=== PATIENT | female | born 1950 | race Caucasian/White ===

== ENCOUNTER → 2020-07-23 14:35 | Outpatient (BNVA) | payer MEDICARE, SELFPAY | PROVIDERS: Family Provider Family Medicine; PCP Family Medicine; Visit Provider Internal Medicine Cardiovascular Disease | DX: I50.9 Heart failure, unspecified (principal); Z86.39 Personal history of other endocrine, nutritional and metabolic disease; Z86.69 Personal history of other diseases of the nervous system and sense organs; Z86.79 Personal history of other diseases of the circulatory system; Z87.2 Personal history of diseases of the skin and subcutaneous tissue; Z87.448 Personal history of other diseases of urinary system; Z98.890 Other specified postprocedural states; E66.9 Obesity, unspecified; E11.9 Type 2 diabetes mellitus without complications; N18.30 Chronic kidney disease, stage 3 unspecified; I10 Essential (primary) hypertension | CPT/HCPCS: 80053; 80061; 83036; 85025 ==

== ENCOUNTER → 2021-01-21 14:23 | Outpatient (BNVA) | payer MEDICARE, SELFPAY | PROVIDERS: Family Provider Family Medicine; PCP Family Medicine; Visit Provider Internal Medicine Cardiovascular Disease | DX: I50.9 Heart failure, unspecified (principal); Z86.39 Personal history of other endocrine, nutritional and metabolic disease; Z86.69 Personal history of other diseases of the nervous system and sense organs; E11.9 Type 2 diabetes mellitus without complications; Z98.890 Other specified postprocedural states; Z86.79 Personal history of other diseases of the circulatory system; Z87.2 Personal history of diseases of the skin and subcutaneous tissue; Z87.448 Personal history of other diseases of urinary system; N18.30 Chronic kidney disease, stage 3 unspecified; E66.9 Obesity, unspecified | CPT/HCPCS: 80053; 80061; 83036; 85025 ==

== ENCOUNTER → 2022-01-27 13:17 | Outpatient (BNVA) | payer MEDICARE, SELFPAY | PROVIDERS: Family Provider Family Medicine; PCP Family Medicine; Visit Provider Internal Medicine Cardiovascular Disease | DX: I13.0 Hypertensive heart and chronic kidney disease with heart failure and stage 1 through stage 4 chronic kidney disease, or unspecified chronic kidney disease (principal); E11.22 Type 2 diabetes mellitus with diabetic chronic kidney disease; N18.30 Chronic kidney disease, stage 3 unspecified; I50.9 Heart failure, unspecified; E66.9 Obesity, unspecified; Z68.27 Body mass index [BMI] 27.0-27.9, adult | CPT/HCPCS: 80053; 80061; 83036; 84443; 85025; 99214 ==

== ENCOUNTER → 2022-07-28 13:49 | Outpatient (BNVA) | payer MEDICARE, SELFPAY | PROVIDERS: Family Provider Family Medicine; PCP Family Medicine; Visit Provider Internal Medicine Cardiovascular Disease | DX: I13.0 Hypertensive heart and chronic kidney disease with heart failure and stage 1 through stage 4 chronic kidney disease, or unspecified chronic kidney disease (principal); E11.22 Type 2 diabetes mellitus with diabetic chronic kidney disease; N18.30 Chronic kidney disease, stage 3 unspecified; I50.22 Chronic systolic (congestive) heart failure; Z79.84 Long term (current) use of oral hypoglycemic drugs; E66.9 Obesity, unspecified; Z68.28 Body mass index [BMI] 28.0-28.9, adult | CPT/HCPCS: 99214 ==

== ENCOUNTER → 2023-04-27 14:26 | Outpatient (BNVA) | payer MEDICARE, SELFPAY | PROVIDERS: Family Provider Family Medicine; PCP Family Medicine; Visit Provider Internal Medicine Cardiovascular Disease | DX: I13.0 Hypertensive heart and chronic kidney disease with heart failure and stage 1 through stage 4 chronic kidney disease, or unspecified chronic kidney disease (principal); I50.20 Unspecified systolic (congestive) heart failure; E11.22 Type 2 diabetes mellitus with diabetic chronic kidney disease; N18.30 Chronic kidney disease, stage 3 unspecified; E66.9 Obesity, unspecified; Z68.27 Body mass index [BMI] 27.0-27.9, adult; Z86.79 Personal history of other diseases of the circulatory system | CPT/HCPCS: 36415; 80053; 80061; 83036; 85025; 99214 ==

== ENCOUNTER 2023-09-02 10:50 | Emergency (ER) | payer MEDICARE, SELFPAY ==
[2023-09-02] VITALS (48 sets, daily range): BP systolic 95–148; BP diastolic 43–87; PULSE 51–81; RESP 12–25; TEMP 36.5; O2SAT 92–98; BMI 29.6
--- NOTE | 2023-09-02 11:00 | XR_ITS ---
WS: [id number] Portable AP upright chest, 09/02/2023 Clinical Data: dyspnea/cough Comparison: Portable chest, 11/16/2018 Findings: No nodules, masses or effusions are seen. The heart is enlarged. The pulmonary vascularity is not increased. No pneumonia or pneumothorax is seen. The aortic arch and descending thoracic aorta show calcification and tortuosity. There are monitor leads on the chest wall. Impression: Cardiomegaly and atherosclerosis.
[2023-09-02 11:08] LABS: Basophils % 0.7 %; Eosinophils % 0.3 %; Hematocrit 42.2 % (36-47); Lymphocytes # 0.7 10^3/uL (0.8-4.8); Lymphocytes % 12.7 %; Mean Corpuscular HGB Conc 33.6 g/dL (30-55); Mean Corpuscular Hemoglobin 29.8 pg (27-33); Mean Corpuscular Volume 88.5 fl (85-98); Mean Platelet Volume 9.4 fL (7.4-10.4); Monocytes # 0.7 10^3/uL (0.2-0.9); Monocytes % 12.5 %; Neutrophils # 4.29 10^3/uL (1.8-7.7); Neutrophils % 73.6 %; Nucleated Red Blood Cells % 0 %; Platelet Count 275 10^3/cmm (157-399); Red Blood Count 4.77 10^6/uL (3.85-5.65); Red Cell Distribution Width 14.2 % (12.1-15.1); White Blood Count 5.83 10^3/uL (3.29-11.43)
--- NOTE | 2023-09-02 11:08 | ECG_ITS ---
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 Measurements Intervals [place] Rate: 51 P: 0 [place]: 0 QRS: -39 QRSD: 85 T: 29 QT: 438 QTc: 404 Interpretive Statements ATRIAL FIBRILLATION WITH SLOW VENTRICULAR RESPONSE LEFT AXIS DEVIATION [QRS AXIS < -30] PATTERN CONSISTENT WITH PULMONARY DISEASE NONSPECIFIC T-WAVE ABNORMALITY Compared to ECG 11/17/2018 05:47:45 Sinus rhythm no longer present First degree AV block no longer present Possible ischemia no longer present T-wave abnormality still present Electronically Signed On 09-02-2023 12:16:39 GUEST RELATION OFFICER by Deborah Tay M.D. [id number]
--- NOTE | 2023-09-02 11:08 | W.ED.WEAKNES ---
HPI - Weakness General: Chief complaint: Weakness Stated complaint: Weakness Time Seen by Provider: 09/02/23 10:55 Source: patient Mode of arrival: EMS History of Present Illness: 72-year-old female presents emergency room via EMS after becoming weak and confused with [facility]. She was walking and began to get lightheaded and dizzy she denies any previous episodes of near syncope. She denies any fever sweats chills chest pain or abdominal pain she is bradycardic on arrival here. When in the room rhythm monitor showing heart rates down in MD Complaint: generalized weakness Onset (ago): minute(s) Duration: intermittent Location: generalized Associated symptoms: Denies chest pain, chills, confusion, melena, decreased appetite, diaphoresis, dysuria, easy bruising, fever(s), headache(s), myalgias, nausea, rash, short of breath, syncope or vomiting Review of Systems Const: Denies: fever(s), chills or diaphoresis Card: Denies: chest pain or syncope Resp: Denies: dyspnea GI: Denies: abdominal pain, nausea, vomiting or melena : Denies: dysuria, urinary frequency or urinary urgency Musc: Denies: neck pain or back pain Skin/Breast: Denies: rash Neuro: Denies: headache(s) or confusion Fuentes/Lymph: Denies: easy bruising [facility] ED PFSH: Medical History Diabetes History of cellulitis Hx of chronic kidney disease Hx of congestive heart failure Hx of encephalopathy Hx of obesity Hx of type 2 diabetes mellitus Hypertension Obesity Surgical History Hx of abdominal surgery Family History Sister Cancer Denies family history of Diabetes CAD (coronary artery disease) Stroke Social History (System 05/05/23 @ 14:24 by Janeth Hooker) Smoking and tobacco/nicotine status: never used tobacco/nicotine Alcohol intake: never Substance/Drug Use: never Physical Exam Const: COMMON NORMALS: no acute distress GENERAL APPEARANCE: cooperative and comfortable ORIENTATION/CONSCIOUSNESS: Yes awake, Yes oriented to person, Yes oriented to place and Yes oriented to time HENMT: COMMON NORMALS: normocephalic, atraumatic and hearing grossly normal bilaterally HEAD & SCALP: normocephalic and atraumatic Resp: COMMON NORMALS: normal respiratory effort, No retractions, No use of accessory muscles and clear to auscultation bilaterally AUSCULTATION: clear to auscultation bilaterally Cardio: COMMON NORMALS: regular rhythm and No murmurs present (Cardio) RATE: bradycardic RHYTHM: regular rhythm GI: COMMON NORMALS: Soft to palpation and No hepatosplenomegaly present AUSCULTATION: Yes normoactive bowel sounds PALPATION: Yes Soft to palpation, No Tenderness to palpation present (GI), No Guarding due to palpation present (GI) and Yes No hepatosplenomegaly present Extremity: COMMON NORMALS: normal to inspection, capillary refill normal, no clubbing, cyanosis or edema, no calf tenderness and no pedal edema Neuro: SENSORIUM/ORIENTATION: Yes oriented to person, Yes oriented to place and Yes oriented to time Skin: COMMON NORMALS: no rashes or lesions noted GENERAL SKIN EXAM: no rashes or lesions noted Course Vital Signs: Vital signs: Vital Signs Temperature 97.7 F 09/02/23 10:51 Pulse Rate 69 09/02/23 15:35 Respiratory Rate 14 09/02/23 15:35 Blood Pressure 148/87 09/02/23 15:35 Pulse Oximetry 95 09/02/23 15:10 Oxygen Delivery Me thod Room Air 09/02/23 12:50 MDM - Weakness Medical Decision Making Patient is feeling much better was able ambulate without difficulty. She did have several episodes of bradycardia while here but never developed any hypotension. Will discharge her home or any change from carvedilol to Toprol-XL 12.5 daily. Also put her on oral antibiotic for the cystitis follow-up with her primary care doctor within the next week return if is further problems. Medical Records I reviewed the patient's medical records. Lab Data I reviewed the patient's lab results. 09/02/23 10:59 09/02/23 11:39 Laboratory Results WBC 5.83 10^3/uL (3.29-11.43) 09/02/23 10:59 RBC 4.77 10^6/uL (3.85-5.65) 09/02/23 10:59 Hgb 14.20 g/dL (11.27-16.99) 09/02/23 10:59 Hct 42.2 % (36-47) 09/02/23 10:59 MCV 88.5 fl (85-98) 09/02/23 10:59 MCH 29.8 pg (27-33) 09/02/23 10:59 MCHC 33.6 g/dL (30-55) 09/02/23 10:59 RDW 14.2 % (12.1-15.1) 09/02/23 10:59 Plt Count 275 10^3/cmm (157-399) 09/02/23 10:59 MPV 9.4 fL (7.4-10.4) 09/02/23 10:59 Neut % (Auto) 73.6 % 09/02/23 10:59 Lymph % (Auto) 12.7 % 09/02/23 10:59 [place] % (Auto) 12.5 % 09/02/23 10:59 Eos % (Auto) 0.3 % 09/02/23 10:59 Baso % (Auto) 0.7 % 09/02/23 10:59 Neut # (Auto) 4.29 10^3/uL (1.8-7.7) 09/02/23 10:59 Lymph # (Auto) 0.7 10^3/uL (0.8-4.8) L 09/02/23 10:59 [place] # (Auto) 0.7 10^3/uL (0.2-0.9) 09/02/23 10:59 Eos # (Auto) 0.0 10^3/uL (0.0-0.8) 09/02/23 10:59 Baso # (Auto) 0.0 10^3/uL (0.0-0.1) 09/02/23 10:59 Nucleated RBC % (auto) 0 % 09/02/23 10:59 Nucleated RBCs # 0.0 /100WBC 09/02/23 10:59 Sodium 138 mmol/L (136-145) 09/02/23 11:39 Potassium 4.0 mmol/L (3.5-5.1) 09/02/23 11:39 Chloride 101 mmol/L (98-107) 09/02/23 11:39 Carbon Dioxide 21 mmol/L (22-29) L 09/02/23 11:39 Anion Gap 20.0 (5-19) H 09/02/23 11:39 BUN 24 mg/dL (8-23) H 09/02/23 11:39 Creatinine 1.9 mg/dL (0.5-0.9) H 09/02/23 11:39 GFR Calculation Not Reportable 09/02/23 11:39 Glucose 147 mg/dL (65-115) H 09/02/23 11:39 Calculated Osmolality 293 mOsm/kg (285-295) 09/02/23 11:39 Calcium 9.0 mg/dL (8.5-10.5) 09/02/23 11:39 Total Bilirubin 0.6 mg/dL (0.15-1.2) 09/02/23 11:39 AST 13 U/L (0-32) 09/02/23 11:39 ALT 7 U/L (0-33) 09/02/23 11:39 Alkaline Phosphatase 118 U/L (35-105) H 09/02/23 11:39 Troponin T Baseline 17 ng/L (0-10) H 09/02/23 11:39 Troponin T 120 Minute 15.68 ng/L (0-10) H 09/02/23 13:45 Delta Troponin T -1.32 ABS# (0-10) L 09/02/23 13:45 Total Protein 7.5 g/dL (6.6-8.7) 09/02/23 11:39 Albumin 4.2 g/dL (3.5-5.2) 09/02/23 11:39 Globulin 3.3 g/dL (1.3-4.6) 09/02/23 11:39 Urine Color Yellow (Yellow) 09/02/23 13:36 Urine Appearance Cloudy (CLEAR) A 09/02/23 13:36 Urine pH 5 (5-7) 09/02/23 13:36 Ur Specific [place] 1.020 (1.005-1.030) 09/02/23 13:36 Urine Protein Neg (Negative) 09/02/23 13:36 Urine Glucose (UA) Norm (Normal) 09/02/23 13:36 Urine Ketones Negative (Negative) 09/02/23 13:36 Urine Blood 2+ (Negative) H 09/02/23 13:36 Urine Nitrate Negative (Negative) 09/02/23 13:36 Urine Bilirubin Neg (Negative) 09/02/23 13:36 Urine Urobilinogen Norm mg/dL (Negative) 09/02/23 13:36 Ur Leukocyte Esterase Negative (Negative) 09/02/23 13:36 Urine RBC 5-10 /hpf (0-2) H 09/02/23 13:36 Urine WBC 40-55 /hpf (0-5) H 09/02/23 13:36 Ur Squamous Epith Cells 5-10 /hpf (0-5) H 09/02/23 13:36 Amorphous Sediment Not Reportable 09/02/23 13:36 Urine Bacteria 2+ /hpf (NONE) H 09/02/23 13:36 Urine Mucus 1+ /hpf 09/02/23 13:36 All radiology interpretation(s) finalized by discharge Discharge Plan Discharge Patient Disposition: Home Clinical Impression: Bradycardia, Cystitis Condition: Stable Prescriptions: New Macrobid 100 mg capsule 100 mg PO BID 7 Days Qty: 14 0RF Rx Instructions: must administer with a meal/food Toprol XL 25 mg tablet extended release 24 hr 12.5 mg PO DAILY Qty: 15 0RF Discontinued carvedilol 6.25 mg tablet 6.25 mg PO BID Qty: 180 3RF No Action simvastatin 20 mg tablet 20 mg PO DAILY potassium chloride 20 mEq tablet,ER particles/crystals 20 meq PO DAILY furosemide 80 mg tablet 80 mg PO DAILY amlodipine 5 mg tablet 7.5 mg PO DAILY Qty: 135 3RF aspirin 81 mg tablet,delayed release (DR/EC) 81 mg PO DAILY Qty: 90 3RF acetaminophen 325 mg Capsule 650 mg PO QID PRN (Reason: Pain) metformin 500 mg tablet extended release 24 hr 500 mg PO DAILY Discharge Orders: Discharge ED (Routine); Ordered 09/02/23 Ordered By: Shen Walker Referrals: sIa Helton DO [Primary Care Provider] - Discharge Diet: Usual diet Discharge Activity: Increase activity as tolerated Patient Instructions: Opioid Safety, Pain Management Activity Restrictions/Additional Instructions: Thank you for choosing [facility] for your healthcare needs today. Please realize this is an emergency room and that we are providing you with a medical screening exam and this may not be complete and all inclusive of all the testing and or work up that you may need to determine your ailment or severity of your illness. It is very important that you follow up as instructed or that you return to the Emergency Department should you have concerns or if your condition changes or worsens in any way. You are seen today for weakness. Your heart rate was rather low in the emergency room recommend holding the carvedilol and instead take Toprol-XL 12.5 mg daily. Additionally you had a mild bladder infection recommend to start oral antibiotics 1 pill twice daily. Follow-up with your primary care doctor. Coding Level of Care Code ED Offender Job Retention Specialist for Michaela Leon
[2023-09-02 12:11] LABS: Alanine Aminotransferase 7 U/L (0-33); Albumin Level 4.2 g/dL (3.5-5.2); Alkaline Phosphatase 118 U/L (35-105); Chloride 101 mmol/L (98-107)
[2023-09-02 12:12] LABS: Troponin(5th) Baseline 17 ng/L (0-10)
[2023-09-02 12:22] LABS: Aspartate Amino Transferase 13 U/L (0-32); Blood Urea Nitrogen 24 mg/dL (8-23); Carbon Dioxide 21 mmol/L (22-29); Globulin 3.3 g/dL (1.3-4.6); Glucose 147 mg/dL (65-115); Osmolality Calculated 293 mOsm/kg (285-295); Total Bilirubin 0.6 mg/dL (0.15-1.2); Total Protein 7.5 g/dL (6.6-8.7)
[2023-09-02 12:33] LABS: Sodium 138 mmol/L (136-145)
--- NOTE | 2023-09-02 13:00 | ECG_ITS ---
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 Measurements Intervals [place] Rate: 58 P: 0 [place]: 0 QRS: -49 QRSD: 100 T: 64 QT: 439 QTc: 434 Interpretive Statements ATRIAL FIBRILLATION WITH SLOW VENTRICULAR RESPONSE PATTERN CONSISTENT WITH PULMONARY DISEASE LEFT ANTERIOR FASCICULAR BLOCK [QRS AXIS <= -45, QR IN I, RS IN II] Compared to ECG 09/02/2023 11:08:32 Left anterior fascicular block now present Left-axis deviation no longer present T-wave abnormality no longer present Electronically Signed On 09-02-2023 15:53:13 GUN CLUB MANAGER by Deborah Tay M.D. [id number]
[2023-09-02 14:18] LABS: Troponin 5 2HR 15.68 ng/L (0-10)
[2023-09-02 14:19] LABS: Add Urine Microscopic? YES; Bilirubin Urine Neg (Negative); Blood Urine 2+ (Negative); Glucose Urine UA Norm (Normal); Ketones Urine Negative (Negative); Leukocyte Esterase Urine Negative (Negative); Nitrate Urine Negative (Negative); Protein Urine Neg (Negative); Urine Appearance Cloudy (CLEAR); Urine Color Yellow (Yellow); Urobilinogen Urine Norm (Negative); pH Urine 5 (5-7)
[2023-09-02 14:23] LABS: Troponin 5 2HR Delta -1.32 ABS# (0-10)
[2023-09-02 14:25] LABS: Add Urine Culture? Yes; Bacteria Urine 2+ /hpf; Mucus Urine 1+ /hpf; WBC Urine 40-55 /hpf (0-5)
== END 2023-09-02 15:53 | disposition home or self-care (01) ==
PROVIDERS: Emergency Provider Family Medicine; PCP Family Medicine
DX: R00.1 Bradycardia, unspecified (principal); N30.90 Cystitis, unspecified without hematuria; Z79.82 Long term (current) use of aspirin; Z79.84 Long term (current) use of oral hypoglycemic drugs; E11.22 Type 2 diabetes mellitus with diabetic chronic kidney disease; I13.0 Hypertensive heart and chronic kidney disease with heart failure and stage 1 through stage 4 chronic kidney disease, or unspecified chronic kidney disease; N18.9 Chronic kidney disease, unspecified; I50.9 Heart failure, unspecified
CPT/HCPCS: 36415; 71045; 80053; 81001; 84484; 85025; 87077; 87086; 87186; 93005; 99285

== ENCOUNTER → 2023-11-12 08:43 | Outpatient (BNVA) | payer MEDICARE, SELFPAY | PROVIDERS: PCP Family Medicine; Visit Provider Family Medicine | DX: E11.9 Type 2 diabetes mellitus without complications (principal) | CPT/HCPCS: 80053; 80061; 82043; 83036 ==

== ENCOUNTER → 2023-11-18 09:58 | Outpatient (BNVA) | payer MEDICARE, SELFPAY | PROVIDERS: PCP Family Medicine | DX: N18.30 Chronic kidney disease, stage 3 unspecified (principal) | CPT/HCPCS: 80048 ==

== ENCOUNTER → 2024-02-10 14:22 | Outpatient (BNVA) | payer MEDICARE, SELFPAY | PROVIDERS: PCP Family Medicine; Visit Provider Family Medicine | DX: N18.30 Chronic kidney disease, stage 3 unspecified (principal) | CPT/HCPCS: 80048 ==

== ENCOUNTER → 2024-05-25 15:22 | Outpatient (BNVA) | payer MEDICARE, SELFPAY | PROVIDERS: PCP Family Medicine; Visit Provider Internal Medicine Cardiovascular Disease | DX: I11.0 Hypertensive heart disease with heart failure (principal); I50.9 Heart failure, unspecified | CPT/HCPCS: 99213 ==

== ENCOUNTER → 2025-05-31 12:24 | Outpatient (BNVA) | payer MEDICARE, SELFPAY | PROVIDERS: PCP Family Medicine; Visit Provider Internal Medicine Cardiovascular Disease | DX: I13.0 Hypertensive heart and chronic kidney disease with heart failure and stage 1 through stage 4 chronic kidney disease, or unspecified chronic kidney disease (principal); E11.22 Type 2 diabetes mellitus with diabetic chronic kidney disease; I50.9 Heart failure, unspecified; N18.9 Chronic kidney disease, unspecified; I35.0 Nonrheumatic aortic (valve) stenosis | CPT/HCPCS: 99214 ==